=== PATIENT | male | born 1990 | race Caucasian/White ===

== ENCOUNTER 2021-03-18 17:05 | Observation (INO) ==
[2021-03-18] MEDS ORDERED: EPINEPHRINE 1 MG/ML AMP IM ONE (17:13)
--- NOTE | 2021-03-18 17:13 | ED.PDOC ---
General ED Provider: Dr. CHETNA LUIS Chief Complaint: Shortness of Air Stated Complaint: Asthma flaring up. Time Seen by Provider: 03/18/21 17:13 Mode of Arrival: Walk-In Information Source: Patient Exam Limitations: No limitations Nursing and Triage Documentation Reviewed and Agree: Yes Does patient meet sepsis criteria?: No System Inflammatory Response Syndrome: Not Applicable Sepsis Protocol: For patient's 13 years and over: Temp is 96.8 and below OR 101 and greater Pulse >90 BPM Resp >20/minute Acutely Altered Mental Status Are patient's symptoms suggestive of a new infection, such as: -Pneumonia -Skin, Soft Tissue -Endocarditis -UTI -Bone, Joint Infection -Implantable Device -Acute Abdominal Infection -Wound Infection -Meningitis -Blood Stream Catheter Infection -Unknown Respiratory Complaint Exam Asthma Complaint/Exam Onset/Duration: Today flaring Symptoms Are: Still present Timing: Constant Initial Severity: Moderate Current Severity: Moderate Character: Reports Wheezing and Non-productive cough Aggravating: Reports Exertion and Allergens (He has a new inhaler, trelegy, he thinks it is making his RAD worse.) Alleviating: Reports Inhalers, Nebulizers and Rest Associated Signs and Symptoms: Reports SOA, Rapid breathing and Labored breathing; Denies Fever, Chest pain, Edema, Calf pain, URI and Sinus infection Related History: Reports Similar episode (Yes) Related Surgical History: Reports None Status Asthmaticus Risk Factors: Reports Recent steriods (Not on any for a week or so.) and Prior ICU admit; Denies Rx non-compliance, Recent admissions and Neb Treatment <4hr apart Current Asthma Medication Usage: Yes Recent Antibiotics: No Respiratory Distress: Moderate Accessory Muscle Use: Yes Retractions: Not Present Diminished Breath Sounds: Yes Prolonged Expiratory Phase: Yes Unable to Speak Full Sentences: No Fatigue Present: No Differential Diagnoses: Acute Asthma, Bronchitis, Pneumonia, Pulmonary Embolism, Reactive Airway Disease, SARS, Bronchospasm and URI Review of Systems Review Of Systems Constitutional: Reports No symptoms Eyes: Reports No symptoms Ears, Nose, Mouth, Throat: Reports No symptoms Respiratory: Reports Cough, Short of air and Wheezing Cardiac: Reports No symptoms GI: Reports No symptoms : Reports No symptoms Musculoskeletal: Reports No symptoms Skin: Reports No symptoms Neurological: Reports No symptoms Endocrine: Reports No symptoms Hematologic/Lymphatic: Reports No symptoms All Other Systems: Reviewed and Negative [facility] Medical History Asthma Family History Other COPD (chronic obstructive pulmonary disease) Cancer Social History Smoking and tobacco status: Former smoker Physical Exam Physical Exam Appearance: Reports Ill-appearing Ill-appearing: Moderate Pain Distress: None Eyes: Reports ANIVAL ENT: Reports Ears normal, Nose normal and Oropharynx normal Neck: Supple Respiratory: Reports Airway patent, Breath sounds equal, Breath sounds diminished, Rhonchi and Wheezes; Denies Airway obstructed, Crackles and Retractions Cardiovascular: Reports RRR and Pulses normal GI/: Reports Soft and Nontender Musculoskeletal: Reports Normal strength and ROM intact Skin: Reports Warm and Dry Neurological: Reports Sensation intact, Motor intact, Alert and Oriented Psychiatric: Reports Affect appropriate and Mood appropriate Interpretation Radiology Interpretation Radiology Interpretation By: Radiologist Radiology Results: Negative Exam Interpreted: Portable CXR Radiology Interpretation By: Radiologist Radiology Results: Positive Exam Interpreted: CT Scan Xray Comments: No PE or infiltrate. Small amount of pneumomediastinum. Director Life Sales Time of Director Life Sales Interpretation: 22:00 Rate: Tachy Rhythm: Sinus Ectopy: None Re-Evaluation Re-Evaluation Time of Re-Evaluation: 22:00 Status: Improved Vital Signs Stable: Yes Pain Level: Patient wanted to leave for home with family, convinced to be admitted. Appearance: Other (still with some respiratory distress) Lungs: Other (mild exp. wheezing, adequate air movement) Skin: Warm and Dry Neuro: Alert and Oriented X3 CV: RRR Additional Comments: Patient had wanted to go home and see PCP in a.m., staff changed his mind and he agreed to admission. Physician Notification Case Discussed Physician Notified: Dr. Velasco for Dr. Parada, he says can admit here to Special Care Unit. Time of Notification: 22:00 Admit/Transition Orders Entered by ED Provider: Yes Reviewed With: Dr. Velasco - he wanted CT done, no PE, minor pneumomediastinum, stable. Admit To: SCU Critical Care Note Critical Care Note Total Critical Care Time (mins): 0 Course Course Hematology/Chemistry: 03/18/21 17:30 03/18/21 17:30 Orders, Labs, Meds: Lab Review 03/18/21 03/18/21 03/18/21 17:30 17:30 17:30 WBC 10.78 H RBC 5.35 Hgb 15.8 Hct 46.5 MCV 86.9 MCH 29.5 MCHC 34.0 RDW Coeff of Annette 11.8 Plt Count 157 Immature Gran % (Auto) 0.3 Neut % (Auto) 75.8 H Lymph % (Auto) 13.9 Norman % (Auto) 8.3 Eos % (Auto) 1.2 Baso % (Auto) 0.5 Neut # (Auto) 8.2 H Lymph # (Auto) 1.5 Norman # (Auto) 0.9 Eos # (Auto) 0.1 Baso # (Auto) 0.1 Immature Gran # (Auto) 0.0 Puncture Site Rr Base Excess -9.1 L O2 Saturation 91.6 L ABG pH 7.21 L* ABG pCO2 47.0 H ABG pO2 76.0 L ABG HCO3 18.8 L ABG Total CO2 20.2 Cy Test Y Hemoglobin 0.9 Oxyhemoglobin 92.7 L Carboxyhemoglobin 2.0 H Total Hemoglobin 16.0 O2 Delivery Device Cannula Oxygen Liter Flow 4.00 Sodium 139.6 Potassium 3.87 Chloride 103.4 Carbon Dioxide 20.6 L Anion Gap 19.47 BUN 7.6 L Creatinine 0.96 Estimated GFR (MDRD) 93.00 BUN/Creatinine Ratio 7.91 Glucose 184.3 H Calcium 9.03 Total Bilirubin 0.54 AST 24.9 ALT 14.3 Alkaline Phosphatase 74.5 Total Protein 7.82 Albumin 4.81 Globulin 3.01 Albumin/Globulin Ratio 1.59 Adenovirus (PCR) B. pertussis DNA (PCR) B.parapertussis DNA PCR C. pneumoniae DNA (PCR) Coronavirus OC43 (PCR) Coronavirus HKU1 (PCR) Coronavirus 229E (PCR) Coronavirus NL63 (PCR) Human Metapneumovir PCR Influenza Type A (PCR) Influenza B (RT-PCR) M. pneumoniae (PCR) Parainfluenza 1 (PCR) Parainfluenza 2 (PCR) Parainfluenza 3 (PCR) Parainfluenza 4 (PCR) RSV (PCR) Entero/Rhino (PCR) SARS-CoV-2 (PCR) 03/18/21 22:29 WBC RBC Hgb Hct MCV MCH MCHC RDW Coeff of Annette Plt Count Immature Gran % (Auto) Neut % (Auto) Lymph % (Auto) Norman % (Auto) Eos % (Auto) Baso % (Auto) Neut # (Auto) Lymph # (Auto) Norman # (Auto) Eos # (Auto) Baso # (Auto) Immature Gran # (Auto) Puncture Site Base Excess O2 Saturation ABG pH ABG pCO2 ABG pO2 ABG HCO3 ABG Total CO2 Yc Test Hemoglobin Oxyhemoglobin Carboxyhemoglobin Total Hemoglobin O2 Delivery Device Oxygen Liter Flow Sodium Potassium Chloride Carbon Dioxide Anion Gap BUN Creatinine Estimated GFR (MDRD) BUN/Creatinine Ratio Glucose Calcium Total Bilirubin AST ALT Alkaline Phosphatase Total Protein Albumin Globulin Albumin/Globulin Ratio Adenovirus (PCR) Not detected B. pertussis DNA (PCR) Not detected B.parapertussis DNA PCR Not detected C. pneumoniae DNA (PCR) Not detected Coronavirus OC43 (PCR) Not detected Coronavirus HKU1 (PCR) Not detected Coronavirus 229E (PCR) Not detected Coronavirus NL63 (PCR) Not detected Human Metapneumovir PCR Not detected Influenza Type A (PCR) Not detected Influenza B (RT-PCR) Not detected M. pneumoniae (PCR) Not detected Parainfluenza 1 (PCR) Not detected Parainfluenza 2 (PCR) Not detected Parainfluenza 3 (PCR) Not detected Parainfluenza 4 (PCR) Not detected RSV (PCR) Not detected Entero/Rhino (PCR) Detected H SARS-CoV-2 (PCR) Not detected Orders Category Date Time Status ADMIT PATIENT INPATIENT .TO SCU (MONITORED BED) ADMISSION 03/18/21 23:56 Completed ABG DRAW REQUEST Stat CARDIO 03/18/21 17:34 Completed NEBULIZER TREATMENT Routine CARDIO 03/18/21 20:12 Completed NEBULIZER TREATMENT Stat CARDIO 03/18/21 18:46 Completed NEBULIZER TREATMENT Stat CARDIO 03/18/21 20:12 Completed OXYGEN Routine CARDIO 03/18/21 23:59 Completed ACTIVITY .Early Mobilization for VTE Prevention CARE 03/19/21 00:00 Completed ACTIVITY .Up ad Darline CARE 03/18/21 23:57 Completed GIVE HS SNACK 2100 CARE 03/19/21 00:00 Completed INTAKE & OUTPUT Q8HR CARE 03/18/21 23:58 Completed IP: INSERT SALINE LOCK ONCE CARE 03/18/21 23:58 Completed NPO REMINDER: IMAGING ONCE CARE 03/18/21 22:31 Completed TELEMETRY MONITORING TELE CARE 03/18/21 23:56 Completed VITAL SIGNS Q8HR CARE 03/18/21 23:58 Completed ADA 1800 BREA. DIET DIETARY 03/18/21 Breakfast Completed REGULAR DIET DIETARY 03/18/21 Breakfast Completed ED IV/MEDIPORT/POWERPORT .ONCE EMERGENCY 03/18/21 17:16 Completed ABG COOX Stat LAB 03/18/21 17:30 Completed CBC W/ AUTO DIFF Stat LAB 03/18/21 17:30 Completed COMPREHENSIVE METABOLIC PANEL Stat LAB 03/18/21 17:30 Completed RESPIRATORY PANEL 2.1 (PCR) Stat LAB 03/18/21 22:29 Completed 0.9 % Sodium Chloride [Saline Flush] MEDS 03/18/21 17:16 Discontinued 1 syr IVF PRN PRN Albuterol Sulfate 0.083% Neb [Albuterol 0.083% Neb] MEDS 03/18/21 18:45 Discontinued 2.5 mg NEB ONCE ONE Budesonide [Pulmicort 1 mg/2 ml] MEDS 03/18/21 20:12 Discontinued 1 mg NEB ONCE ONE Epinephrine Amp [Epinephrine 1 mg/ml Amp] MEDS 03/18/21 17:13 Discontinued 0.5 mg IM ONCE ONE Ipratropium/Albuterol Neb [Duoneb] MEDS 03/18/21 17:14 Discontinued 3 ml NEB ONCE ONE Ipratropium/Albuterol Neb [Duoneb] MEDS 03/18/21 19:43 Discontinued 3 ml NEB ONCE ONE Levalbuterol HCl [Xopenex 1.25 mg] MEDS 03/18/21 20:12 Discontinued 1.25 mg NEB ONCE ONE Magnesium Sulfate Vial [Magnesium Sulfate 1 gm/2 ml MEDS 03/18/21 23:53 Discontinued Vial] 2 gm IVP ONCE ONE Methylprednisolone Sod Succ/Pf [Solu-Medrol 125 mg] MEDS 03/18/21 17:16 Discontinued 125 mg IVP ONCE ONE Methylprednisolone Sod Succ/Pf [Solu-Medrol 125 mg] MEDS 03/18/21 23:48 Discontinued 125 mg IVP ONCE ONE RESUSCITATION STATUS Routine OTHERS 03/18/21 23:57 Completed CHEST, 1V AP ONLY Stat RADS 03/18/21 17:[address] CHEST PE PROTOCOL Stat RADS 03/18/21 22:29 Completed Medications Discontinued Medications Generic Name Dose Route Start Last Admin Trade Name Freq PRN Reason Stop Dose Admin Albuterol Sulfate 2.5 mg 03/18/21 18:45 03/18/21 18:55 Albuterol Sulfate 0.083% Vial.Neb NEB 03/18/21 18:46 2.5 mg ONCE ONE Administration Albuterol Sulfate 2.5 mg 03/19/21 01:40 03/19/21 02:45 Albuterol Sulfate 0.083% Vial.Neb NEB 2.5 mg RTQ2H PRN Administration Wheezing Albuterol/Ipratropium 3 ml 03/18/21 17:14 03/18/21 17:22 Ipratropium/Albuterol Vial.Neb NEB 03/18/21 17:15 3 ml ONCE ONE Administration Albuterol/Ipratropium 3 ml 03/18/21 19:43 03/18/21 20:00 Ipratropium/Albuterol Vial.Neb NEB 03/18/21 19:44 3 ml ONCE ONE Administration Albuterol/Ipratropium 3 ml 03/19/21 02:00 03/19/21 01:50 Ipratropium/Albuterol Vial.Neb NEB 3 ml RTQ4H TAMMIE Administration Budesonide 1 mg 03/18/21 20:12 03/18/21 21:43 Budesonide 1 Mg/2 Ml Vial.Neb NEB 03/18/21 20:13 1 mg ONCE ONE Administration Epinephrine HCl 0.5 mg 03/18/21 17:13 03/18/21 17:39 Epinephrine 1 Mg/1 Ml Amp IM 03/18/21 17:14 0.5 mg ONCE ONE Administration Sodium Chloride 1,000 mls @ 125 mls/hr 03/19/21 02:53 Sodium Chloride IV 03/19/21 10:52 .Q8H STA Levalbuterol HCl 1.25 mg 03/18/21 20:12 03/18/21 21:41 Levalbuterol Hcl 1.25 Mg/3 Ml Vial.Neb NEB 03/18/21 20:13 1.25 mg ONCE ONE Administration Magnesium Sulfate 2 gm 03/18/21 23:53 03/19/21 00:11 Magnesium Sulfate Vial 1 Gm/2 Ml Vial IVP 03/18/21 23:54 2 gm ONCE ONE Administration Methylprednisolone Sodium Succinate 125 mg 03/18/21 17:16 03/18/21 17:41 Methylprednisolone Sod Succ/Pf 125 Mg/2 Ml Vial IVP 03/18/21 17:17 125 mg ONCE ONE Administration Methylprednisolone Sodium Succinate 125 mg 03/18/21 23:48 03/19/21 00:11 Methylprednisolone Sod Succ/Pf 125 Mg/2 Ml Vial IVP 03/18/21 23:49 125 mg ONCE ONE Administration Methylprednisolone Sodium Succinate 125 mg 03/19/21 02:56 03/19/21 03:01 Methylprednisolone Sod Succ/Pf 125 Mg/2 Ml Vial IVP 03/19/21 02:57 125 mg ONCE STA Administration Sodium Chloride 1 syr 03/18/21 17:16 03/18/21 17:41 0.9% Sodium Chloride 10 Ml Disp.Syrin IVF 1 syr PRN PRN Administration To flush IV Vital Signs: Temp Pulse Resp BP Pulse Ox 03/18/21 17:09 99.0 F 126 H 28 H 165/99 H 83 L Discharge Plan Discharge Patient Disposition: ADMITTED INPATIENT ED Provider: CHETNA LUIS Condition: Serious Physician Progress Note: [Patient with asthma flare, ER tx with epi at first, oxygen, nebs, steroids, magnesium. Patient after several hours wanted to go home, staff convinced him to stay. Discussed with Dr. Velasco, personal companion for Dr. Parada, he would like CT done to exclude PE. Placed in Special Care Unit. Maintaining oxygen sat in mid 90's on 4 liters [address] per [address]. [address] revealed no PE or pneumonia, small degree of pneumomediastinum noted. This is from the asthma flare work of breathing and will resolve spontaneously, not of any sig. clinical concern. Stable, I can evaluate on the floor if needed prior to arrival of his PCP in the morning. I worked closely with RT while in ED, will help in monitoring patient after admission.]
[2021-03-18] MEDS ORDERED: DUONEB NEB ONE ×2 (17:14→19:43)
[2021-03-18] MEDS ORDERED: SOLU-MEDROL 125 MG IVP ONE ×2 (17:16→23:48)
[2021-03-18 17:19] VITALS: BP 165/99
[2021-03-18 17:33] LABS: BASOPHILS # (AUTO) 0.1 K/uL (0-0.2); BASOPHILS % (AUTO) 0.5 % (0.0-3.0); EOSINOPHILS # (AUTO) 0.1 K/ul (0.0-0.7); EOSINOPHILS % (AUTO) 1.2 % (0.0-7.0); HEMATOCRIT 46.5 % (42.0-52.0); HEMOGLOBIN 15.8 g/dl (14.0-18.0); IMMATURE GRANULOCYTE % (AUTO) 0.3 % (0.0-5.0); LYMPHOCYTES # (AUTO) 1.5 K/uL (0.60-3.4); LYMPHOCYTES % (AUTO) 13.9 (10.0-50.0); MEAN CORPUSCULAR HEMOGLOBIN 29.5 pg (27.0-31.0); MEAN CORPUSCULAR VOLUME 86.9 fl (80.0-94.0); MONOCYTES # (AUTO) 0.9 K/uL (0.4-2.0); MONOCYTES % (AUTO) 8.3 (0-10); NEUTROPHILS # (AUTO) 8.2 K/ul (2.0-6.9); NEUTROPHILS % (AUTO) 75.8 % (42.2-75.2); PLATELET COUNT 157 10^3/uL (140-440); RDW COEFFICIENT OF VARIATION 11.8 % (11.6-14.8); RED BLOOD COUNT 5.35 10^6/ul (4.70-6.10); WHITE BLOOD COUNT 10.78 K/ul (4.2-10.2)
[2021-03-18 17:43] LABS: ABG O2 HGB 92.7 % (95-100); BEecf -9.1 (-2.0-3.0); HCO3 18.8 (21-28); MetHb 0.9 (0-1.5); TCO2 20.2 (19-24); sO2 91.6 % (94-98)
[2021-03-18 17:45] LABS: ABG PH 7.21 (7.35-7.45); ALANINE AMINOTRANSFERASE 14.3 U/L (0-50); ALBUMIN 4.81 g/dL (3.5-5.0); ALKALINE PHOSPHATASE 74.5 U/L (38-126); ASPARTATE AMINO TRANSFERASE 24.9 U/L (17-59); BILIRUBIN,TOTAL 0.54 mg/dL (0.2-1.3); BLOOD UREA NITROGEN 7.6 mg/dL (9-20); CALCIUM 9.03 mg/dL (8.4-10.2); CARBON DIOXIDE 20.6 mmol/L (22-30.0); CHLORIDE 103.4 mmol/L (98-107); CREATININE 0.96 mg/dL (0.60-1.10); GLUCOSE 184.3 mg/dL (74-106); POTASSIUM 3.87 mmol/L (3.5-5.1); SODIUM 139.6 mmol/L (134.5-145); TOTAL PROTEIN 7.82 g/dL (6.3-8.2)
--- NOTE | 2021-03-18 17:47 | DI ---
EXAM: One-view chest HISTORY: Asthma TECHNIQUE: Single frontal view the chest was obtained. Comparison 11/14/2020. FINDINGS: The heart is normal size. The lungs are clear. The pulmonary vasculature appears normal. The costophrenic angles are sharp. IMPRESSION: No active cardiopulmonary disease.
[2021-03-18] MEDS ORDERED: ALBUTEROL 0.083% NEB NEB ONE (18:45)
[2021-03-18] MEDS ORDERED: XOPENEX 1.25 MG NEB ONE (20:12)
[2021-03-18] MEDS ORDERED: PULMICORT 1 MG/2 ML NEB ONE (20:12)
[2021-03-18 22:37] LABS: BORDETELLA PARAPERTUSSIS (PCR) NOT DETECTED (NOT DETECT); BORDETELLA PERTUSSIS (PCR) NOT DETECTED (NOT DETECT); CHLAMYDIA PNEUMONIAE (PCR) NOT DETECTED (NOT DETECT); CORONAVIRUS 229E (PCR) NOT DETECTED (NOT DETECT); CORONAVIRUS HKU1 (PCR) NOT DETECTED (NOT DETECT); CORONAVIRUS NL63 (PCR) NOT DETECTED (NOT DETECT); CORONAVIRUS OC43 (PCR) NOT DETECTED (NOT DETECT); HUMAN METAPNEUMOVIRUS (PCR) NOT DETECTED (NOT DETECT); INFLUENZA B (PCR) NOT DETECTED (NOT DETECT); MYCOPLASMA PNEUMONIAE (PCR) NOT DETECTED (NOT DETECT); PARAINFLUENZA VIRUS 1 (PCR) NOT DETECTED (NOT DETECT); PARAINFLUENZA VIRUS 2 (PCR) NOT DETECTED (NOT DETECT); PARAINFLUENZA VIRUS 3 (PCR) NOT DETECTED (NOT DETECT); PARAINFLUENZA VIRUS 4 (PCR) NOT DETECTED (NOT DETECT); RESPIRATORY SYNCYTIAL V (PCR) NOT DETECTED (NOT DETECT); SARS_COV_2 (PCR) NOT DETECTED (NOT DETECT)
[2021-03-18 23:25] LABS: ADENOVIRUS (PCR) NOT DETECTED (NOT DETECT); HUMAN RHINOVIRUS/ENTEROV (PCR) DETECTED (NOT DETECT)
--- NOTE | 2021-03-18 23:41 | CT ---
Exam: CT angiography of the chest History: Dyspnea Technique: [address] of the chest utilizing CT angiography protocol. Multiplanar and max imum intensity projection reformations were performed. FINDINGS: Technically adequate for evaluation of pulmonary arteries. The aorta is not well opacifie d. There are no pulmonary artery filling defects. Lung windows show no pulmonary parenchymal abnorm ality. Pneumo mediastinum is present. Subcutaneous emphysema in the neck. No acute chest wall abno rmality. No abnormalities of the upper abdomen. Impression: 1. No pulmonary artery thrombus 2. No pulmonary parenchymal abnormalities 3. Pneumo mediastinum of uncertain etiology All CT scans are performed using dose optimization techniques as appropriate to the performed exam an d include at least one of the following: Automated exposure control, adjustment of the mA and/or kV according t o size, and the use of iterative reconstruction technique.
[2021-03-18] MEDS ORDERED: MAGNESIUM SULFATE 1 GM/2 ML VIAL IVP ONE (23:53)
[2021-03-19] MEDS ORDERED: ALBUTEROL 0.083% NEB NEB PRN (01:40)
[2021-03-19 01:58] VITALS: TEMP 98.5; BMI 23.0
[2021-03-19] MEDS ORDERED: DUONEB NEB SCH (02:00)
[2021-03-19] MEDS ORDERED: SOLU-MEDROL 125 MG 125 MG in SODIUM CHLORIDE 50 ML IV ONE (02:44)
[2021-03-19] MEDS ORDERED: SOLU-MEDROL 125 MG ONE (02:47)
[2021-03-19] MEDS ORDERED: SODIUM CHLORIDE 1,000 ML IV STA (02:53)
[2021-03-19] MEDS ORDERED: SOLU-MEDROL 125 MG IVP STA (02:56)
[2021-03-19 03:17] LABS: ABG O2 HGB 93.9 % (95-100); ABG PH 7.38 (7.35-7.45); BEecf -0.8 (-2.0-3.0); COHb 1.8 (0.5-1.5); HCO3 24.3 (21-28); MetHb 1.3 (0-1.5); TCO2 25.6 (19-24); sO2 94.6 % (94-98); tHb 16.5 g/dl (11.7-17.4)
--- NOTE | 2021-03-19 03:19 | DI ---
EXAM: Chest, single view HISTORY: Shortness of a air COMPARISON: 03/18/2021 FINDINGS / IMPRESSION: The heart size appears within normal limits. Pneumomediastinum is again iden tified. The lungs remain well aerated. There is no pulmonary consolidation, effusion or pneumothora x.
== END 2021-03-19 03:20 | disposition short-term general hospital (02) | DRG 204 ==
LOC: ED 17:05 → INTOOBSV 03-19 00:55 → MEDSURG A 03-19 00:55
PROVIDERS: ADMIT Family Medicine; ATTEND Family Medicine
DX: E87.2 Acidosis; R06.2 Wheezing; Z20.822 Contact with and (suspected) exposure to COVID-19; J45.909 Unspecified asthma, uncomplicated; R06.02 Shortness of breath; R05 Cough; R07.9 Chest pain, unspecified